=== PATIENT | male | born 1935 | race Caucasian/White ===

== ENCOUNTER 2017-07-21 15:44 | Inpatient (IN) | payer OTHER, MEDICAID ==
[~2017-07-21] VITALS: Ht 165.1 cm; Wt 86.6 kg
[2017-07-21 15:59] VITALS: BP 158/84
--- NOTE | 2017-07-21 16:50 | NUR ---
PATIENT AMBULATED TO BED 3 AT THIS TIME.
--- NOTE | 2017-07-21 17:00 | NUR ---
PATIENT BIB DAUGHTER WITH C/O DIZZINESS, WEAKNESS X 10 DAYS WITH HEAD ACHES RADIATING TO THE NECK LOSSING WEIGHT 8 LBS; DENIES N/V/D;HX OF HTN, BPH, COLON CA, RX OF VIT B 1000MG.DENIES N/V/D; SKIN IS PINK/WARM/DRY; AAOX4 WITH EVEN AND STEADY GAIT; PT DENIES ANY FEVER, CP, SOB, OR COUGH AT THIS TIME; PATIENT STATES PAIN OF 5/10 AT THIS TIME;PATIENT POSITIONED FOR COMFORT; HOB ELEVATED; BEDRAILS UP X2; BED DOWN. ALL MONITORS IN NPLACED;ER MD MADE AWARE OF PT STATUS.
[2017-07-21 17:16] LABS: BASOPHILS # (AUTO) 0.1 K/uL (0.00-0.22); BASOPHILS % (AUTO) 1.8 % (0.0-2.0); EOSINOPHILS # (AUTO) 0.1 K/uL (0-0.4); EOSINOPHILS % (AUTO) 1.3 % (0.0-4.0); HEMATOCRIT 36.8 % (36-52); HEMOGLOBIN 12.3 g/dL (12.0-18.0); MEAN CORPUSCULAR HEMOGLOBIN 30 pg (27-31); MEAN CORPUSCULAR HGB CONC 33 g/dL (33-37); MEAN CORPUSCULAR VOLUME 90 fL (80-94); MONOCYTES # (AUTO) 0.5 K/uL (0.8-1.0); MONOCYTES % (AUTO) 7.2 % (1.7-9.3); NEUTROPHILS # (AUTO) 5.1 K/uL (1.8-7.7); NEUTROPHILS % (AUTO) 74.7 % (42.2-75.2); PLATELET COUNT (AUTO) 211 K/uL (140-450); RED BLOOD CELL COUNT(AUTO) 4.09 MIL/uL (4.20-6.10); RED CELL DISTRIBUTION WIDTH 12.2 % (11.6-13.7); WHITE BLOOD COUNT (AUTO) 6.8 K/uL (4.8-10.8)
[2017-07-21 17:41] LABS: ANION GAP 9.9 (8-16); CARBON DIOXIDE 31.1 mmol/L (21-32); CHLORIDE 103 mmol/L (98-107); CREATININE 0.9 mg/dL (0.7-1.3); GLUCOSE 117 mg/dL (74-106); SODIUM SERUM 140 mmol/L (136-145); UREA NITROGEN, BLOOD 22 mg/dL (7-18)
[2017-07-21 17:51] LABS: PROTHROMBIN TIME 10.9 secs (10.8-13.4)
[2017-07-21 17:56] LABS: ALBUMIN 3.8 g/dL (3.4-5.0); ASPARTATE AMINOTRANSFERASE 14 U/L (15-37); TOTAL BILIRUBIN 0.4 mg/dL (0.0-1.0)
[2017-07-21 18:16] LABS: APPEARANCE,URINE CLEAR (CLEAR); BILIRUBIN,URINE NEGATIVE (NEGATIVE); BLOOD, URINE TRACE-I (NEGATIVE); COLOR,URINE YELLOW (YELLOW); LEUKOCYTE ESTERASE ,URINE NEGATIVE (NEGATIVE); NITRITE, URINE NEGATIVE (NEGATIVE); UGLUCOSE NEGATIVE (NEGATIVE)
[2017-07-21] MEDS ORDERED: ACETAMINOPHEN 325 MG TAB PO PRN (18:30)
[2017-07-21] MEDS ORDERED: ONDANSETRON 4 MG/2 ML VIAL IM/IVP PRN (18:30)
[2017-07-21] MEDS ORDERED: CLOPIDOGREL 75 MG TAB PO ONE (18:30)
[2017-07-21] MEDS ORDERED: HYDROcodone/APAP 7.5/325 MG 1 TAB PO PRN (18:30)
[2017-07-21] MEDS ORDERED: DOCUSATE SODIUM 100 MG GELCAP PO PRN (18:30)
[2017-07-21] MEDS ORDERED: MORPHINE SULFATE 2 MG/ML SYR IVP PRN ×2 (18:30→19:00)
[2017-07-21] MEDS ORDERED: ASPIRIN 81 MG TAB.CHEW PO ONE (18:30)
[2017-07-21] MEDS ORDERED: NACL 0.9% 1,000 ML IV ONE (18:30)
[2017-07-21 18:32] LABS: RBC,URINE 0-5 (RARE) /HPF (0-5); WBC,URINE NONE SEEN /HPF (0-5)
[2017-07-21] MEDS ORDERED: NITROGLYCERIN 0.4 MG TAB SL PRN (19:00)
--- NOTE | 2017-07-21 19:00 | NUR ---
PT CAN'T RECALL NAME OF HIGH BLOOD PRESSURE MEDICINE;
--- NOTE | 2017-07-21 19:06 | NUR ---
Patient will be admitted to care of DR MCCARTHY. Admited to TELE. Will go to room 120 B. Belongings list completed. Report to CLARE THERAINER.
[2017-07-21] MEDS ORDERED: VITB12 PO (19:12)
[2017-07-21 19:20] VITALS: BP 138/76
--- NOTE | 2017-07-21 19:20 | NUR ---
ADMITTED A 81M FROM ER. CAME BY KATERINA DUE TO DIZZINESS AND WEAKNESS X 1 WEEK. DX: CHEST PAIN R/O ACS. PT CAME AWAKE,ALERT AND ORIENTED X4. ON TELE MONITOR-SR. DENIES ANY DISCOMFORT AND PAIN AT THIS TIME. SKIN INTACT. RESPIRATION EVEN AND UNLABORED. VITAL SIGNS TAKEN . PLACED COMFORTABLY IN BED. HAS HL ON THE RT WRIST #20. CLEAR AND PATENT. ORIENTED TO HOSPITAL ROUTINES. CALL LIGHT AND URINAL PLACED WITHIN EASY REACH. PLAN OF CARE DISCUSSED AND VERBALIZED UNDERSTANDING. WILL FOLLOW UP ADMIT ORDERS. AND CONTINUE TO MONITOR.
[2017-07-21 20:26] LABS: CHOL/HDL RATIO 3.7 (1-4.5); FREE T4 (FREE THYROXINE) 1.04 ng/dL (0.76-1.46); MAGNESIUM 1.9 mg/dL (1.8-2.4); PHOSPHORUS 3.8 mg/dL (2.5-4.9); THYROID STIMULATING HORMONE 0.65 uIU/mL (0.34-3.74)
[2017-07-21] MEDS: NACL 0.9% 1,000 ML IV SCH (20:45)
--- NOTE | 2017-07-21 20:45 | NUR ---
IVF NS @60 ML /HR STARTED ON THE RT WRIST #20. CLEAR AND PATENT.
[2017-07-21 20:51] LABS: BARBITURATE, URINE NEG. ng/ml (NEG <=200); BENZODIAZEPINE, URINE NEG. ng/mL (NEG <=200); CANNABINOID, URINE NEG. ng/mL (NEG <=50); COCAINE, URINE NEG. ng/mL (NEG <=300); OPIATE, URINE NEG. ng/mL (NEG <=2000); PHENCYCLIDINE SCREEN,URINE NEG. ng/mL (NEG <=25)
[2017-07-21] MEDS ORDERED: ATORVASTATIN 20 MG TAB PO SCH (21:00)
--- NOTE | 2017-07-21 22:00 | NUR ---
MADE ROUNDS, PT SLEEPING WITH NO S/S OF ANY DISCOMFORT NOR PAIN NOTED.
[2017-07-22] VITALS: BP 127/73
--- NOTE | 2017-07-22 | NUR ---
LATEST BP 127/73. WITH NO C/O ANY CHEST PAIN NOR DISCOMFORT NOTED. WILL CONTINUE TO MONITOR.
--- NOTE | 2017-07-22 02:00 | NUR ---
MADE ROUNDS. ASLEEP. WITH NO S/S OF ANY DISTRESS NOR DISCOMFORT NOTED. WILL CONTINUE TO MONITOR.
--- NOTE | 2017-07-22 04:15 | NUR ---
SEQUENTIAL COMPRESSION DEVICE MACHINE TO BOTH LOWER LEGS ON . PT MADE AWARE OF THE BENEFIT FROM THE MACHINE.
[2017-07-22 04:28] VITALS: BP 139/83
--- NOTE | 2017-07-22 04:58 | NUR ---
DR. PERALES, TELEVISION PRODUCTION CLERK , CAME AND SEEN PT. AWARE OF THE TROPONIN RESULTS.
[2017-07-22] MEDS ORDERED: MECLIZINE 25 MG TAB PO PRN (05:25)
--- NOTE | 2017-07-22 07:15 | NUR ---
ENDORSED PT IN STABLE CONDITION TO AM NURSE FOR CONTINUITY OF CARE.
--- NOTE | 2017-07-22 07:20 | NUR ---
RECEIVED REPORT FROM GAGE MAKER NURSE, PT IS RESTING IN BED, A/OX4, AMBULATORY, PT HAS IV ON THE RIGHT WRIST, PATENT, INTACT, FLUSHING WELL, NO S/S OF RESPIRATORY DISTRESS OR DISCOMFORT NOTED, DISCUSSED PLAN OF CARE WITH PT, PT VERBALIZED UNDERSTANDING, SAFETY/FALL PRECAUTIONS ARE IN PLACE, CALL LIGHT IS WITHIN REACH, WILL CONTINUE TO MONITOR.
[2017-07-22 08:00] VITALS: BP 145/86
[2017-07-22 08:25] LABS: T4 (THYROXINE) 6.3 ug/dL (4.5-12.0)
--- NOTE | 2017-07-22 08:55 | NUR ---
PATIENT HAS BEEN SCREENED AND CATEGORIZED MODERATE NUTRITION RISK. PATIENT WILL BE SEEN WITHIN 3-5 DAYS OF ADMISSION. 07/24/17-07/26/[address]
--- NOTE | 2017-07-22 08:58 | NUR ---
DUE MEDICATIONS GIVEN, PT TOLERATED WELL, ALL NEEDS ARE MET AT THIS TIME, CALL LIGHT IS WITHIN REACH.
[2017-07-22] MEDS ORDERED: ASPIRIN 81 MG TAB.CHEW PO SCH (09:00)
[2017-07-22] MEDS ORDERED: METOPROLOL SUCCINATE 50 MG TABER PO SCH (09:00)
[2017-07-22] MEDS ORDERED: LISINOPRIL 20 MG TAB PO SCH (09:00)
--- NOTE | 2017-07-22 09:55 | NUR ---
PER DR. HENNING PT WANTS TO LEAVE THE HOSPITAL AMA.
[2017-07-22] MEDS ORDERED: HYDR-5 PO (10:50)
[2017-07-22] MEDS: NACL 0.9% 1,000 ML IV SCH (11:09)
[2017-07-22 11:14] LABS: ANION GAP 7.6 (8-16); CARBON DIOXIDE 31.3 mmol/L (21-32); CHLORIDE 103 mmol/L (98-107); CREATININE 0.8 mg/dL (0.7-1.3); GLUCOSE 132 mg/dL (74-106); POTASSIUM 3.9 mmol/L (3.5-5.1); SODIUM SERUM 138 mmol/L (136-145); UREA NITROGEN, BLOOD 17 mg/dL (7-18)
[2017-07-22 11:53] LABS: BASOPHILS # (AUTO) 0.1 K/uL (0.00-0.22); BASOPHILS % (AUTO) 1.6 % (0.0-2.0); EOSINOPHILS # (AUTO) 0.1 K/uL (0-0.4); EOSINOPHILS % (AUTO) 0.8 % (0.0-4.0); HEMATOCRIT 35.2 % (36-52); LYMPHOCYTES # (AUTO) 0.6 K/uL (2.0-11.5); LYMPHOCYTES % (AUTO) 8.8 % (20.5-51.1); MEAN CORPUSCULAR HEMOGLOBIN 30 pg (27-31); MEAN CORPUSCULAR HGB CONC 34 g/dL (33-37); MEAN CORPUSCULAR VOLUME 89 fL (80-94); MONOCYTES # (AUTO) 0.4 K/uL (0.8-1.0); MONOCYTES % (AUTO) 6.5 % (1.7-9.3); NEUTROPHILS # (AUTO) 5.4 K/uL (1.8-7.7); NEUTROPHILS % (AUTO) 82.3 % (42.2-75.2); PLATELET COUNT (AUTO) 204 K/uL (140-450); RED BLOOD CELL COUNT(AUTO) 3.97 MIL/uL (4.20-6.10); RED CELL DISTRIBUTION WIDTH 12.1 % (11.6-13.7); WHITE BLOOD COUNT (AUTO) 6.6 K/uL (4.8-10.8)
[2017-07-22 12:00] VITALS: BP 151/89
--- NOTE | 2017-07-22 13:00 | NUR ---
PATIENT'S DAUGHTER HERE TO AFFIRMATIVE ACTION SPECIALIST PT, DR. HENNING IS IN PATIENT'S ROOM DISCUSSING RISKS OF LEAVING AMA. PT STATED HE WAS FEELING FINE AND STILL WANTED TO LEAVE.
[2017-07-22] MEDS ORDERED: ACET-2863 PO (13:01)
--- NOTE | 2017-07-22 13:10 | NUR ---
ID WRIST BAND REMOVED, IV REMOVED, CATHETER TIP INTACT. PT STABLE UPON LEAVING ACCOMPANIED BY DAUGHTER.
== END 2017-07-22 13:10 | disposition left against medical advice (07) | DRG 205 ==
LOC: MED 15:44 → MTU 18:31
PROVIDERS: ADMIT Family Medicine; ATTEND Family Medicine
DX: M94.0 Chondrocostal junction syndrome [Tietze] (principal); N17.0 Acute kidney failure with tubular necrosis; G90.9 Disorder of the autonomic nervous system, unspecified; I10 Essential (primary) hypertension; K21.9 Gastro-esophageal reflux disease without esophagitis; R73.03 Prediabetes; E66.9 Obesity, unspecified; E78.5 Hyperlipidemia, unspecified; Z53.21 Procedure and treatment not carried out due to patient leaving prior to being seen by health care provider; Z85.46 Personal history of malignant neoplasm of prostate; Z85.038 Personal history of other malignant neoplasm of large intestine; Z88.0 Allergy status to penicillin; Z68.31 Body mass index [BMI] 31.0-31.9, adult; Z90.49 Acquired absence of other specified parts of digestive tract; Z90.79 Acquired absence of other genital organ(s); Z82.49 Family history of ischemic heart disease and other diseases of the circulatory system
CPT/HCPCS: 36415; 70450; 71010; 76770; 80048; 80053; 80305; 81001; 82150; 83036; 83605; 83690; 83735; 83880; 84100; 84436; 84439; 84443; 84479; 84484; 85025; 85610; 85730; 87040; 87081; 87086; 93005; 93880; 99285; J7030; Q0092

== ENCOUNTER 2019-03-01 21:32 | Inpatient (IN) | payer OTHER, MEDICAID ==
--- NOTE | 2019-02-11 22:00 | NUR ---
PT. ASSISTED TO GO BEDSIDE COMMODE RT WANTED TO URINATE AND HAVE BM . NO FURTHER COMPLAINTS DONE. CALL LIGHT WITH IN REACH. Addendum: 03/04/19 at 0307 by Charo Pritchard RN ENTRY FOR 03/03/19 3170.
[~2019-03-01] VITALS: Ht 175.3 cm; Wt 81.2 kg
[2019-03-01 21:32] VITALS: BP 130/67
[~2019-03-01 21:32] MED LIST: CYAN100T65 PO; HYDR-5 PO; HYDR-5123 PO
[2019-03-01] MEDS ORDERED: NACL 0.9% 500 ML IV SCH (21:38)
[2019-03-01] MEDS ORDERED: CIPR500T4 PO (21:44)
[2019-03-01] MEDS ORDERED: ASPI-1718 PO (21:44)
[2019-03-01] MEDS ORDERED: HYDR-7 PO (21:44)
[2019-03-01] MEDS ORDERED: METR250T2 PO (21:44)
--- NOTE | 2019-03-01 21:48 | NUR ---
BIBA FROM HOME C/O CHEST PAIN, SUDDEN ONSET, NON PROVOKED. STATES PAIN RADIATES TO ABD. RECENT CHOLESECTOMY, ABD FIRM. SON AT BEDSIDE REPORTS HE WENT INTO AFIB FOR THE FIRST TIME AFTER EULALIA SURGERY AND HAS NOT BEEN ON A BETA MONICA OR BLOOD THINNER FOR THE PAST 5 DAYS. AFIB REPORTED BY EMS ON EKG. TRINID MADE AWARE.
--- NOTE | 2019-03-01 21:51 | NUR ---
DR WOLFF AT BEDSIDE.
[2019-03-01] MEDS ORDERED: DILTIAZEM 25 MG/5 ML VIAL IVP ONE (22:00)
[2019-03-01 22:06] LABS: BASOPHILS % (AUTO) 0.1 % (0.0-2.0); EOSINOPHILS % (AUTO) 0.1 % (0.0-4.0); HEMATOCRIT 33.9 % (36-52); HEMOGLOBIN 11.2 g/dL (12.0-18.0); LYMPHOCYTES % (AUTO) 9.8 % (20.5-51.1); MEAN CORPUSCULAR HEMOGLOBIN 29 pg (27-31); MEAN CORPUSCULAR HGB CONC 33 g/dL (33-37); MEAN CORPUSCULAR VOLUME 88.5 fL (80-94); MONOCYTES # (AUTO) 1.2 K/uL (0.8-1.0); MONOCYTES % (AUTO) 11.6 % (1.7-9.3); NEUTROPHILS # (AUTO) 7.9 K/uL (1.8-7.7); NEUTROPHILS % (AUTO) 78.4 % (42.2-75.2); PLATELET COUNT (AUTO) 326 K/uL (140-450); RED BLOOD CELL COUNT(AUTO) 3.83 MIL/uL (4.20-6.10); RED CELL DISTRIBUTION WIDTH 13.8 % (11.6-13.7)
--- NOTE | 2019-03-01 22:15 | NUR ---
BP 84/[address] WOLFF MADE AWARE.
[2019-03-01 22:17] LABS: PROTHROMBIN TIME 12.3 secs (10.8-13.4)
[2019-03-01 22:20] LABS: ALBUMIN 2.3 g/dL (3.4-5.0); ANION GAP 9.1 (8-16); ASPARTATE AMINOTRANSFERASE 17 U/L (15-37); CARBON DIOXIDE 30.7 mmol/L (21-32); CHLORIDE 98 mmol/L (98-107); CREATININE 1.9 mg/dL (0.7-1.3); GLUCOSE 160 mg/dL (74-106); SODIUM SERUM 135 mmol/L (136-145); TOTAL BILIRUBIN 0.3 mg/dL (0.0-1.0); UREA NITROGEN, BLOOD 42 mg/dL (7-18)
[2019-03-01 22:26] LABS: POTASSIUM 2.8 mmol/L (3.5-5.1)
--- NOTE | 2019-03-01 22:27 | NUR ---
DR WOLFF AT BEDSIDE.
--- NOTE | 2019-03-01 22:28 | NUR ---
PATIENT TAKEN TO CT IN [facility] WITH FLUIDS RUNNING.
[2019-03-01] MEDS ORDERED: POTASSIUM CHLORIDE 10 MEQ TABER PO ONE (22:30)
[2019-03-01] MEDS ORDERED: LEVOFLOXACIN 500 MG/D5W PREMIX 100 ML IV ONE (22:30)
[2019-03-01] MEDS ORDERED: PANTOPRAZOLE 40 MG INJ VIAL IVP ONE (22:30)
[2019-03-01] MEDS ORDERED: ASPIRIN 81 MG TAB.CHEW PO ONE (23:25)
--- NOTE | 2019-03-01 23:35 | NUR ---
PATEINT PROVIDED WITH URINAL. STATES HE DOES NOT NEED TO PEE AT THIS TIME.
[2019-03-02] VITALS (13 sets, daily range): BP systolic 100–131; BP diastolic 55–84
--- NOTE | 2019-03-02 00:10 | NUR ---
Spoke with Suni from [facility]. Updated [facility] of vital signs and status.
[2019-03-02] MEDS ORDERED: NACL 0.9% 500 ML IV ONE (00:20)
[2019-03-02] MEDS ORDERED: DOPamine 400 MG/D5W PREMIX 250 ML IV ONE (00:50)
--- NOTE | 2019-03-02 01:07 | NUR ---
DOPAMINE PREPARED, NOT STARTED. BP 95/56. DR WOLFF MADE AWARE. WILL HOLD DOPAMINE AND CONTINUE TO MONITOR BP
[2019-03-02] MEDS ORDERED: hePARIN / DEXT 5% PREMIX 250 ML IV SCH ×2 (01:10→02:55)
[2019-03-02] MEDS ORDERED: HEPARIN PER PHARMACY MC PRN (01:10)
[2019-03-02] MEDS ORDERED: NACL 0.9% 1,000 ML IV SCH (01:14)
[2019-03-02] MEDS ORDERED: ALBUTEROL 0.083% 2.5 MG/3 ML NEBU INH PRN (01:15)
[2019-03-02] MEDS ORDERED: ACETAMINOPHEN 325 MG TAB PO PRN (01:15)
[2019-03-02] MEDS ORDERED: MORPHINE SULFATE 4 MG/ML SYR IVP PRN (01:15)
[2019-03-02] MEDS ORDERED: HYDROcodone/APAP 5/325 MG 1 TAB TAB PO PRN (01:15)
[2019-03-02] MEDS ORDERED: ONDANSETRON 4 MG/2 ML VIAL IVP PRN (01:15)
[2019-03-02] MEDS ORDERED: NOREPINEPHRINE 4 MG in DEXTROSE 5% 250 ML IV PRN (01:50)
--- NOTE | 2019-03-02 02:00 | NUR ---
CENTRAL LINE PLACED IN RIGHT SUBCLAVIAN BY DR. WOLFF. CONSENT SIGNED. XRAY OBTAINED TO VERIFY PLACEMENT. PER DR WOLFF LINE GOOD FOR USE.
--- NOTE | 2019-03-02 02:10 | NUR ---
RECEIVED PT FROM ER NURSE NO ACUTE DISTRESS NOTED. WILL CONTINUE TO OBSERVE
--- NOTE | 2019-03-02 02:12 | NUR ---
PATIENT TRANSPORTED BY KATERINA ON MONITOR TO ICU BED 7. TO BE CARED FOR BY DR FRANCO. REPORT GIVEN TO RN, BILLIE. PATIENT STABLE AT TIME OF TRANSFER OF CARE.
--- NOTE | 2019-03-02 02:15 | NUR ---
PT AAOX4, FOLLOWING COMMANDS. PT ABLE TO MOVE ALL EXTREMITIES, GENERALIZED WEAKNESS NOTED. PT ON ROOM AIR, DIMINISHED BREATH SOUNDS. AFIB ON MONITOR IRREGULAR PULSE NOTED, 130S HR, +2-3 BILATERAL LOWER EXTREM EDEMA NOTED. ABD DISTENDED, ROUND, BOWEL SOUNDS PRESENT. PT VOIDING IN URINAL WITH ASSISTANCE. OLD SCAR TO MID ABDOMEN FROM PREVIOUS SURGERY, ERYTHEMA TO BILATERAL LOWER EXTREMITIIES NOTED. TRIPLE LUMEN CENTRAL LINE TO R SUBCLAVIAN NOTED. BED LOCKED IN LOWEST POSITION. WILL CONTINUE TO OBSERVE
[2019-03-02] MEDS ORDERED: AMIODARONE 150 MG/3 ML VIAL IV ONE ×2 (02:40→02:41)
[2019-03-02] MEDS ORDERED: metroNIDAZOLE 500 MG/NS PREMIX 100 ML IV SCH (03:00)
[2019-03-02] MEDS: AMIODARONE 450 MG in DEXTROSE 5% 250 ML IV SCH ×2 (03:02→09:45)
--- NOTE | 2019-03-02 05:14 | NUR ---
PT IN BED EYES CLOSED. AROUSABLE. DENIES PAIN @ THIS TIME. NO ACUTE DISTRESS NOTED. WILL CONTINUE TO OBSERVE
[2019-03-02 05:55] LABS: BASOPHILS % (AUTO) 0.2 % (0.0-2.0); EOSINOPHILS % (AUTO) 0.2 % (0.0-4.0); HEMATOCRIT 28.9 % (36-52); HEMOGLOBIN 9.8 g/dL (12.0-18.0); LYMPHOCYTES # (AUTO) 0.9 K/uL (2.0-11.5); LYMPHOCYTES % (AUTO) 9.3 % (20.5-51.1); MEAN CORPUSCULAR HEMOGLOBIN 30 pg (27-31); MEAN CORPUSCULAR HGB CONC 34 g/dL (33-37); MEAN CORPUSCULAR VOLUME 88.3 fL (80-94); MONOCYTES % (AUTO) 10.2 % (1.7-9.3); NEUTROPHILS % (AUTO) 80.1 % (42.2-75.2); PLATELET COUNT (AUTO) 257 K/uL (140-450); RED BLOOD CELL COUNT(AUTO) 3.27 MIL/uL (4.20-6.10); RED CELL DISTRIBUTION WIDTH 13.8 % (11.6-13.7); WHITE BLOOD COUNT (AUTO) 9.9 K/uL (4.8-10.8)
[2019-03-02 06:27] LABS: ANION GAP 6.9 (8-16); CHLORIDE 100 mmol/L (98-107); CREATININE 1.7 mg/dL (0.7-1.3); GLUCOSE 174 mg/dL (74-106); SODIUM SERUM 135 mmol/L (136-145); UREA NITROGEN, BLOOD 39 mg/dL (7-18)
[2019-03-02 06:34] LABS: POTASSIUM 2.9 mmol/L (3.5-5.1)
[2019-03-02] MEDS ORDERED: MAG SULF 2000 MG/WATER PREMIX 50 ML IV SCH (07:30)
[2019-03-02] MEDS: POTASSIUM CHLORIDE 10 MEQ TABER PO SCH ×2 (07:50→12:10)
[2019-03-02] MEDS: PANTOPRAZOLE 40 MG INJ VIAL IVP SCH (08:05)
--- NOTE | 2019-03-02 08:35 | NUR ---
PAGED DR. FRANCO ON HIS EXCHANGE. RECEIVED A CALL BACK FROM DR. MISTY HERNANDEZ. INFORMED OF PATIENT'S PROCEDURE CT GUIDED ABDOMINAL CYST ASPIRATION AND PATIENT ON HEPARIN DRIP, INFORMED OF PATIENT'S TROPONIN TRENDS, LIPASE 751, BP 424 AND PATIENT IS ON IV FLUIDS. PER PHYSICIAN " OK TO HOLD HEPARIN AND RESTART 4 HOURS AFTER PROCEDURE. PUT PATIENT ON CLEAR LIQUID DIET, DISCONTINUE IV FLUIDS"-READBACK AND VERIFIED
--- NOTE | 2019-03-02 08:45 | NUR ---
INFORMED CT STAFF JUMA AND ACCORDING TO HER THAT THEIR DOCTOR WANTS "TO STOP THE HEPARIN 3 HOURS PRIOR TO THE PROCEDURE. SO STOP HEPARIN AT 10 AM"
--- NOTE | 2019-03-02 08:55 | NUR ---
PATIENT HAS BEEN SCREENED AND CATEGORIZED MODERATE NUTRITION RISK. PATIENT WILL BE SEEN WITHIN 3-5 DAYS OF ADMISSION. 03/04/19[address]ICKI [address]
[2019-03-02] MEDS ORDERED: LEVOFLOXACIN 500 MG/D5W PREMIX 100 ML IV SCH (09:00)
[2019-03-02] MEDS: ASPIRIN 81 MG TAB.CHEW PO SCH (09:00)
--- NOTE | 2019-03-02 09:02 | NUR ---
AMIODARONE DRIP DECREASED TO 0.5MG/MIN
--- NOTE | 2019-03-02 10:00 | NUR ---
HEPARIN DRIP TURNED OFF
--- NOTE | 2019-03-02 11:09 | NUR ---
DR. HERNANDEZ AT BEDSIDE
[2019-03-02] MEDS ORDERED: POTASSIUM CHLORIDE 10 MEQ TABER PO PRN (11:25)
[2019-03-02] MEDS ORDERED: MAG SULF 2000 MG/WATER PREMIX 50 ML IV PRN (11:25)
[2019-03-02] MEDS: metroNIDAZOLE 500 MG/NS PREMIX 100 ML IV SCH ×2 (12:10→20:31)
[2019-03-02 12:16] LABS: PROTHROMBIN TIME 12.3 secs (10.8-13.4)
--- NOTE | 2019-03-02 12:30 | NUR ---
FAMILY AT BEDSIDE. PATIENT'S SON WANTS "TO TALK TO A DOCTOR". PAGED DR. HERNANDEZ AND HE CALLED BACK. PER DR. HERNANDEZ " I CANT TALK TO THEM ON THE PHONE RIGHT NOW I WILL CALL BACK IN 4-5 HOURS" INFORMED FAMILY
--- NOTE | 2019-03-02 12:58 | NUR ---
DR. JUDD AT BEDSIDE UPDATING FAMILY OF PATIENT'S CONDITION AND PLANNED CT GUIDED PANCREATIC FLUID ASPIRATION
--- NOTE | 2019-03-02 13:15 | NUR ---
LEFT MESSAGE ON DR. FIGUEROA'S CELL PHONE REMINDING HIM OF CONSULT.
--- NOTE | 2019-03-02 14:00 | NUR ---
PATIENT AT CT DEPARTMENT
--- NOTE | 2019-03-02 14:40 | NUR ---
BACK TO ICU ROOM WITHOUT INCIDENCE. PANCREATIC FLUID SAMPLE SENT TO LABORATORY FOR ORDERED TESTS. URINE SENT FOR ORDERED TESTS
--- NOTE | 2019-03-02 14:45 | NUR ---
SPOKE TO IN PATIENT PHARMACIST AND UPDATED THAT PROCEDURE WAS DONE AND PER DR. HERNANDEZ TO RESTART HEPARIN 4 HOURS AFTER PROCEDURE. PER PHARMACIST "RESTART AT 1000 UNITS/HR AND NO NEED TO GIVE BOLUS"
[2019-03-02 15:03] LABS: APPEARANCE,URINE CLEAR (CLEAR); BILIRUBIN,URINE NEGATIVE (NEGATIVE); BLOOD, URINE NEGATIVE (NEGATIVE); LEUKOCYTE ESTERASE ,URINE NEGATIVE (NEGATIVE); NITRITE, URINE NEGATIVE (NEGATIVE); PH,URINE 5.5 (5.0-9.0); UGLUCOSE NEGATIVE (NEGATIVE)
[2019-03-02 15:04] LABS: COLOR,URINE AMBER (YELLOW)
--- NOTE | 2019-03-02 15:44 | NUR ---
ECHO ONGOING. PAGED DR. HERNANDEZ
--- NOTE | 2019-03-02 16:20 | NUR ---
DR. FIGUEROA HAS NOR RESPONDED TO THE CALL YET. PER MEDICAL STAFF DR. FIGUEROA IS ON VACATION. DR. MISTY HERNANDEZ NOTIFIED. WILL CALL DR. SANDOVAL.
--- NOTE | 2019-03-02 16:45 | NUR ---
PER DR. SANDOVAL'S EXCHANGE. HE IS NOT VASCULAR NEUROLOGIST. DR. BURDEN IS VASCULAR NEUROLOGIST.
--- NOTE | 2019-03-02 16:55 | NUR ---
CALLED DR. SANDOVAL'S EXCHANGE. MADE AWARE THAT DR. BURDEN DOES NOT HAVE PRIVILEGES HERE AT [facility].
--- NOTE | 2019-03-02 17:00 | NUR ---
MESSAGE LEFT AT DR. DAI'S OFFICE TO REMIND HIM OF THE CONSULT.
--- NOTE | 2019-03-02 17:07 | NUR ---
DR. HERNANDEZ CALLED BACK AND INFORMED DR. FIGUEROA IS ON VACATION AND CLARIFIED ABOUT THE AMIODARONE DRIP PATIENT CONVERTED TO SINUS RHYTHM WITH PACs. PER DR. HERNANDEZ "CONSULT DR. SANDOVAL, START AMIODARONE 200MG P.O. TID AND TURN OFF AMIODARONE DRIP 2 HOURS AFTER TAKING THE TABLET" READBACK AND VERIFIED
--- NOTE | 2019-03-02 17:10 | NUR ---
DR. DAI'S RETAIL COMMISSION SALES ASSOCIATE CALLED. STATED THAT DR. DAI IS ON VACATION UNTIL FRIDAY THIS WEEK.
--- NOTE | 2019-03-02 17:12 | NUR ---
DR. MISTY HERNANDEZ NOTIFIED LEEANNA DR. DAI IS ON VACATION. WILL CALL DR. BRICEÑO INSTEAD. PER DR. MISTY HERNANDEZ, IT'S OK FOR DR. SANDOVAL TO SEE PT. TOMORROW.
--- NOTE | 2019-03-02 17:25 | NUR ---
SPOKE TO TAMIR, (DR. SANDOVAL EXCHANGE). NOTIFIED THAT IT IS OK FOR DR. SANDOVAL TO SEE PT. TOMORROW.
--- NOTE | 2019-03-02 18:20 | NUR ---
PATIENT'S DAUGHTER AT BEDSIDE. DAUGHTER SAID "WHERE IS THE DOCTOR? WHY CAN'T HE COME? ARE YOU COVERING UP FOR HIM?" INFORMED HER THAT DR. HERNANDEZ ROUNDED THIS MORNING AND ICU CN GAVE TO HIM BUTCH'S (PATIENT'S SON) NUMBER SO THEY CAN TALK. RN ATTEMPTING TO FEED PATIENT WITH HEAD OF BED UP 45 DEGREES. PATIENT REFUSED TO EAT. PATIENT'S DAUGHTER SAID " HERE LET ME FEED HIM" RN PROVIDED FAMILY AND PATIENT WITH PRIVACY, GIVEN PATIENT CALL OLGUIN WITHIN REACH TO CALL FOR ANY ISSUES
[2019-03-02] MEDS ORDERED: AMIODARONE 200 MG TAB PO SCH (20:00)
[2019-03-02] MEDS ORDERED: AMIODARONE 200 MG TAB ONE (20:40)
--- NOTE | 2019-03-02 20:50 | NUR ---
SPOKE WITH SON OF PT, FÁTIMA, UPDATED REGARDING PT CONDITION. VSS. WILL CONTINUE TO OBSERVE.
[2019-03-02] MEDS: LEVOFLOXACIN 250 MG/D5 PREMIX 50 ML IV SCH (22:50)
[2019-03-03] VITALS (9 sets, daily range): BP systolic 110–129; BP diastolic 55–80
--- NOTE | 2019-03-03 00:20 | NUR ---
PT HAS EYES CLOSED; AROUSABLE, DENIES PAIN @ THIS TIME. TURNED AND REPOSITIONED. NO ACUTE DISTRESS. WILL CONTINUE TO OBSERVE.
[2019-03-03] MEDS: HYDRAGUARD CREAM TP SCH ×2 (01:42→12:43)
[2019-03-03] MEDS: metroNIDAZOLE 500 MG/NS PREMIX 100 ML IV SCH ×3 (04:47→20:36)
--- NOTE | 2019-03-03 04:47 | NUR ---
SCHEDULED FLAGYL GIVEN ACCORDING TO ORDER, EDUCATION PROVIDED.
[2019-03-03 06:29] LABS: BASOPHILS % (AUTO) 0.2 % (0.0-2.0); EOSINOPHILS % (AUTO) 0.2 % (0.0-4.0); HEMATOCRIT 28.7 % (36-52); HEMOGLOBIN 9.7 g/dL (12.0-18.0); LYMPHOCYTES % (AUTO) 11.6 % (20.5-51.1); MEAN CORPUSCULAR HEMOGLOBIN 30 pg (27-31); MEAN CORPUSCULAR HGB CONC 34 g/dL (33-37); MEAN CORPUSCULAR VOLUME 88.6 fL (80-94); MONOCYTES # (AUTO) 0.8 K/uL (0.8-1.0); MONOCYTES % (AUTO) 9.4 % (1.7-9.3); NEUTROPHILS # (AUTO) 6.8 K/uL (1.8-7.7); NEUTROPHILS % (AUTO) 78.6 % (42.2-75.2); PLATELET COUNT (AUTO) 276 K/uL (140-450); RED BLOOD CELL COUNT(AUTO) 3.23 MIL/uL (4.20-6.10); RED CELL DISTRIBUTION WIDTH 13.8 % (11.6-13.7); WHITE BLOOD COUNT (AUTO) 8.7 K/uL (4.8-10.8)
[2019-03-03 06:42] LABS: ALBUMIN 1.8 g/dL (3.4-5.0); ANION GAP 8.7 (8-16); ASPARTATE AMINOTRANSFERASE 15 U/L (15-37); CARBON DIOXIDE 29.5 mmol/L (21-32); CHLORIDE 102 mmol/L (98-107); CREATININE 1.6 mg/dL (0.7-1.3); GLUCOSE 130 mg/dL (74-106); POTASSIUM 4.2 mmol/L (3.5-5.1); SODIUM SERUM 136 mmol/L (136-145); TOTAL BILIRUBIN 0.3 mg/dL (0.0-1.0); UREA NITROGEN, BLOOD 35 mg/dL (7-18)
[2019-03-03 06:45] LABS: MAGNESIUM 1.9 mg/dL (1.8-2.4); PHOSPHORUS 3.2 mg/dL (2.5-4.9)
--- NOTE | 2019-03-03 07:26 | NUR ---
REPORT GIVEN TO DAY SHIFT FOR CONTINUITY OF CARE.
--- NOTE | 2019-03-03 07:27 | NUR ---
RECEIVED REPORT FROM MASS COMMUNICATIONS INSTRUCTOR NURSE AT BEDSIDE, PT IS AAOX4, ABLE TO FOLLOW COMMANDS AND MAKE NEEDS KNOWN. VSS, DENIES PAIN. NO S/S OF DISTRESS, CLEAR LUNG SOUNDS VIKI, ON RA, O2 SAT AT 97%, DENIES CHEST PAIN, SR WITH PAC'S ON PROJECT ENGINEERING MANAGER, SOFT ABDOMEN WITH ACTIVE BOWEL SOUNDS, CONTINENT WITH B&B'S , ABLE TO USE URINAL, SKIN IS WARM AND DRY TO TOUCH, OLD SURGICAL SCAR TO ABDOMEN NOTED, ABLE TO MOVE ALL EXTREMITIES, +2 PITTING EDEMA NOTED TO BLE, GENERALIZED WEAKNESS, CENTRAL LINE TO RIGHT SUBCLAVIAN, TLC, PATENT, RUNNING HEPARIN AT 1000 UNITS/HR AND NS AT 10 ML/HR. HOB ELEVATED TO 30 DEGREES, SCD ON, SAFETY MEASURES IN PLACE, POSITION CHANGED FOR OFF LOAD PRESSURE, CALL LIGHT WITHIN REACH, WILL CONTINUE TO MONITOR.
[2019-03-03] MEDS ORDERED: PROBIOTIC SCREEN 1 EA MISC MC PRN (07:40)
--- NOTE | 2019-03-03 08:13 | NUR ---
DR. SANDOVAL CAME IN TO SEE PT AT BEDSIDE, UPDATED PT'S CONDITION, WILL FOLLOW UP WITH NEW ORDERS.
--- NOTE | 2019-03-03 08:30 | NUR ---
SCHEDULED MEDICATION GIVEN, PT IS ABLE TO SWALLOW PILLS WHOLE, AND TOLERATED WELL.
[2019-03-03] MEDS: AMIODARONE 200 MG TAB PO SCH ×3 (08:37→17:06)
[2019-03-03] MEDS: ASPIRIN 81 MG TAB.CHEW PO SCH (08:37)
[2019-03-03] MEDS: PANTOPRAZOLE 40 MG INJ VIAL IVP SCH (08:37)
[2019-03-03 09:35] LABS: PROTHROMBIN TIME 12.2 secs (10.8-13.4)
--- NOTE | 2019-03-03 10:00 | NUR ---
PT IS RESTING IN BED, NO S/S OF DISTRESS, VSS, DENIES PAIN, POSITION CHANGED FOR OFF LOAD PRESSURE, FAMILY MEMBERS AT BEDSIDE, QUESTIONS ANSWERED.
--- NOTE | 2019-03-03 10:48 | NUR ---
DR. HERNANDEZ CAME IN TO SEE PT AT BEDSIDE, SPOKE TO PT'S SON, AND ANSWERED ALL HIS QUESTION, WILL FOLLOW UP WITH NEW ORDERS.
[2019-03-03] MEDS ORDERED: FUROSEMIDE 20 MG TAB PO SCH (11:56)
--- NOTE | 2019-03-03 12:00 | NUR ---
PT IS RESTING IN BED, NO S/S 0F DISTRESS, VSS, DENIES PAIN, POSITION CHANGED FOR OFF LOAD PRESSURE.
--- NOTE | 2019-03-03 14:00 | NUR ---
TRANSFERRED PT TO ROOM 112B VIA WHEELCHAIR, ALL BELONGS GOES WITH PT, VSS, DENIES PAIN, FAMILY MEMBERS INFORMED TRANSFER.
--- NOTE | 2019-03-03 14:20 | NUR ---
CHECKED ON PT. VS RECORDED BP 94/40, O2 SAT 96 ON RA, HR 94, T 97.5, RR 16, DENIES PAIN AT THIS TIME. PT HAS PICC LINE ON HIS RT UPPER CHEST , TRIPLE LUMEN , HAS LFT AC 20 G IV ACCESS. PT IS ON MECHANICAL SOFT DIET, TAKES THE ENSURE TID. PT IS SL. NO DISTRESS NOTED. CALL LIGHT WITHIN PT REACH. ALL SAFETY MEASURE IN PLACE. INFORMED PT TO USE CALL LIGHT FOR ANY HELP. STATES WILL CALL FRO THE HELP. WILL CONTINUE TO MONITOR PT.
--- NOTE | 2019-03-03 16:15 | NUR ---
CHECKED ON THE PT. VS STABLE AT THIS TIME.PT ASSISTED WITH BEDPAN, STATES FEELING LIKE HAVING BOWEL MOVEMENT. SERVICE CAR OPERATOR ASSISTED WITH BEDPAN. INFORMED HIM TO USE CALLLIGHT WHEN HE IS DONE WITH BM. PLACED CALL LIGHT WITHIN PTS REACH. WILL CONTINUE TO MONITOR PT.
--- NOTE | 2019-03-03 17:08 | NUR ---
ADMINISTERED MEDS TO PT ORDERED. PT TOLERATED WELL. NO SIGN OF DISTRESS NOTED. CALL LIGHT WITHIN PT REACH. WILL CONTINUE TO MONITOR PT.
--- NOTE | 2019-03-03 18:26 | NUR ---
RECEIVED CALL FROM PT'S SON, ASKING TO FEED PT WITH ENSURE. PT DRANK THE ENSURE ALL 1 BOTTLE. ASKED THE SECOND BOTTLE OF ENSURE FROM FNS, PLACED ENSURE AT PT BEDSIDE. INFORMED THE OYSTER UNLOADER TO HELP PT USE THE BEDSIDE COMMODE RATHER THAN USING DAIPER OR BEDPAN. PT LYING COMFORTABLY IN HIS BED. WILL CONTINUE TO MONITOR PT.
--- NOTE | 2019-03-03 18:30 | NUR ---
PT ON THE BEDSIDE COMMODE, HELPED HIM TO SIT ON THE COMMODE. PLACED CALL LIGHT WITHIN PTS REACH. INFORMED HIM TO USE CALL LIGHT WHEN HE IS FINISHED. VERBALIZED UNDERSTANDING. WILL CONTINUE TO MONITOR PT.
--- NOTE | 2019-03-03 19:20 | NUR ---
ENDORSED PT TO PM NURSE AT BEDSIDE. PT IN STABLE CONDITION.
--- NOTE | 2019-03-03 19:25 | NUR ---
RECEIVED FROM AM RN IN BED AWAKE AND ALERT. PT. ABLE TO VERBALIZE SIMPLE NEEDS. CALL LIGHT WITH IN REACH AND CARE PLANS FOR THE NIGHT DISCUSSED WITH HIM. CENTRAL LINE TO RIGHT UPPER CHEST AND LAC IVF #20 . INTACT AND PATENT. ENCOURAGED TO CALL FOR ANY HELP SHE MIGHT NEED OR IF IN PAIN. DX. OF AFIB AND NSTEMI . TELEMETRY MONITORING/CARDIAC. DENIES PAIN AT THIS TIME.
[2019-03-03] MEDS ORDERED: ENOXAPARIN 80 MG/0.8 ML SYR SUBQ SCH (21:00)
[2019-03-03] MEDS ORDERED: LOVENOX 1MG/KG Q12H SUBQ SCH (21:00)
[2019-03-03] MEDS: LEVOFLOXACIN 250 MG/D5 PREMIX 50 ML IV SCH (23:32)
[2019-03-04 00:08] VITALS: BP 117/58
--- NOTE | 2019-03-04 00:13 | NUR ---
SLEEPING WELL AT THIS TIME. ABLE TO ANSWER YES AND NO WITH SIMPLE QUESTIONS.
[2019-03-04] MEDS: HYDRAGUARD CREAM TP SCH ×2 (01:00→13:01)
--- NOTE | 2019-03-04 02:06 | NUR ---
LAB. TECH CALLED AND REPORTED PT. MRSA NARES IS +. WILL MICHAEL FUENTES. INFORM CHARGE NURSE.
--- NOTE | 2019-03-04 02:13 | NUR ---
MD COLEY WIRE CUTTER FOR MD HERNANDEZ MADE AWARE OF MRSA NARES + WITH PT. NO ORDERS GIVEN.
--- NOTE | 2019-03-04 03:02 | NUR ---
PT. AWAKE AT THIS TIME. REQUESTED TO DRINK WATER. TOLERATED WELL. NO COMPLAINTS OF PAIN DONE. PILLOW SUPPORT TO PRESSURE AREAS. ENCOURAGED TO STAY ON TURNED SIDE. "OK" HEEL PROTECTORS ON BILATERALLY.CALL LIGHT WITH IN REACH AND BED ALARM ON. TELEMETRY/CARDIAC MONITORING.
[2019-03-04 04:30] VITALS: BP 117/60
[2019-03-04] MEDS: metroNIDAZOLE 500 MG/NS PREMIX 100 ML IV SCH ×2 (04:45→12:26)
--- NOTE | 2019-03-04 05:58 | NUR ---
BLOOD SPECIMEN TAKEN FROM CENTRAL LINE FOR TESTING. WOKE UP AND ABLE TO ANSWER SIMPLE QUESTIONS. ABLE TO VERBALIZE SIMPLE NEEDS. REFUSED PAIN RELIEVER OFFERED. "NO" REFUSED TO HAVE SNACK OFFERED. ABLE TO DRINK 30 ML OF WATER AT THIS TIME. NO SOB. A/O X 4. CENTRAL LINE PORTS FLUSHED WITH NS. CARDIAC TELEMETRY . NSR /SA. WILL ENDORSE TO NEXT RN FOR CONTINUITY OF CARE.
[2019-03-04 06:50] LABS: BASOPHILS % (AUTO) 0.2 % (0.0-2.0); EOSINOPHILS % (AUTO) 0.4 % (0.0-4.0); HEMOGLOBIN 9.4 g/dL (12.0-18.0); LYMPHOCYTES # (AUTO) 0.8 K/uL (2.0-11.5); LYMPHOCYTES % (AUTO) 8.3 % (20.5-51.1); MEAN CORPUSCULAR HEMOGLOBIN 30 pg (27-31); MEAN CORPUSCULAR HGB CONC 34 g/dL (33-37); MEAN CORPUSCULAR VOLUME 88.4 fL (80-94); MONOCYTES # (AUTO) 0.7 K/uL (0.8-1.0); MONOCYTES % (AUTO) 7.9 % (1.7-9.3); NEUTROPHILS # (AUTO) 7.9 K/uL (1.8-7.7); NEUTROPHILS % (AUTO) 83.2 % (42.2-75.2); PLATELET COUNT (AUTO) 247 K/uL (140-450); RED BLOOD CELL COUNT(AUTO) 3.17 MIL/uL (4.20-6.10); RED CELL DISTRIBUTION WIDTH 13.8 % (11.6-13.7); WHITE BLOOD COUNT (AUTO) 9.5 K/uL (4.8-10.8)
[2019-03-04 06:54] LABS: ALBUMIN 1.7 g/dL (3.4-5.0); ANION GAP 8.9 (8-16); ASPARTATE AMINOTRANSFERASE 16 U/L (15-37); CARBON DIOXIDE 29.8 mmol/L (21-32); CHLORIDE 102 mmol/L (98-107); CREATININE 1.6 mg/dL (0.7-1.3); GLUCOSE 133 mg/dL (74-106); POTASSIUM 3.7 mmol/L (3.5-5.1); SODIUM SERUM 137 mmol/L (136-145); TOTAL BILIRUBIN 0.2 mg/dL (0.0-1.0); UREA NITROGEN, BLOOD 34 mg/dL (7-18)
[2019-03-04 06:56] LABS: MAGNESIUM 1.8 mg/dL (1.8-2.4); PHOSPHORUS 2.8 mg/dL (2.5-4.9)
--- NOTE | 2019-03-04 07:30 | NUR ---
PATIENT WAS AWAKE, ALERT, ORIENTED TO PERSON, AND PLACE. RESPIRATION EVEN, UNLABOR ON ROOM AIR. SKIN DRY AND WARM. CENTRAL LINE PATENT AND INTACT. DENIED PAIN, N/V, SOB AT THIS TIME. PLAN OF CARE WAS DISCUSSED WITH PATIENT. BED AT LOW POSITION, SIDE RAILS UP. CALL LIGHT WITHIN REACH.
[2019-03-04 08:00] VITALS: BP 102/43
[2019-03-04 08:01] LABS: PROTHROMBIN TIME 11.5 secs (10.8-13.4)
[2019-03-04] MEDS: PANTOPRAZOLE 40 MG INJ VIAL IVP SCH (08:44)
[2019-03-04] MEDS: ASPIRIN 81 MG TAB.CHEW PO SCH (08:45)
[2019-03-04] MEDS: AMIODARONE 200 MG TAB PO SCH ×2 (08:46→12:27)
[2019-03-04] MEDS ORDERED: FUROSEMIDE 20 MG TAB PO SCH (09:00)
[2019-03-04] MEDS ORDERED: APIXABAN 2.5 MG TAB PO SCH (09:00)
[2019-03-04] MEDS ORDERED: CHLORHEXADINE GLUC 2% CLOTH TP SCH (09:00)
[2019-03-04] MEDS ORDERED: CLINICAL MONITORING MC SCH (09:00)
[2019-03-04] MEDS ORDERED: MUPIROCIN CA NASAL 2% 1GM TUBE NS SCH (09:00)
--- NOTE | 2019-03-04 09:15 | NUR ---
PATIENT WAS ASSISTED TO GO TO COMMODE, WEAK GAIT. MEDS WERE ADMINISTERED PER ORDER. NO DISTRESS NOTED AT THIS TIME
--- NOTE | 2019-03-04 11:15 | NUR ---
PATIENT WAS AMBULATING AROUND THE HALLWAY WITH WALKER, ACCOMPANIED BY SON, STEADY GAIT. NO DISTRESS NOTED
[2019-03-04] MEDS ORDERED: APIX2.5 PO (11:20)
[2019-03-04] MEDS ORDERED: FURO20TA8 PO (11:20)
[2019-03-04] MEDS ORDERED: AMIO200T10 PO (11:20)
--- NOTE | 2019-03-04 11:45 | NUR ---
PATIENT WAS AWAKE, ALERT, SITING IN THE CHAIR COMFORTABLY. RESPIRATION EVEN, UNLABOR ON ROOM AIR. DENIED PAIN AT THIS TIME. FAMILY AT BEDSIDE. CALL LIGHT WITHIN REACH
[2019-03-04 12:00] VITALS: BP 127/56
--- NOTE | 2019-03-04 12:30 | NUR ---
DISCHARGE INSTRUCTION AND PRESCRIPTIONS WERE GIVEN AND EXPLAINED TO PATIENT'S SON. SON VERBALIZED UNDERSTANDING. IV WAS REMOVED FROM LEFT AC, CATHETER INTACT, NO ACTIVE BLEEDING SEEN.
--- NOTE | 2019-03-04 14:30 | NUR ---
CENTRAL LINE D/C. USED ASEPTIC TECHNIQUE. CATHETER INTACT. APPLIED PRESSURE. NO ACTIVE BLEEDING SEEN. PATIENT TOLERATED PROCEDURE WELL.
--- NOTE | 2019-03-04 14:42 | NUR ---
DC PLANNING: CM FAXED DC ORDER WITH PT KIM NOTES TO [facility] @ [facility] CM SPOKE WITH FLEX (CM @ [facility]) @ REGARDING PATIENT DISCHARGING HOME WITH HOME HEALTH NEEDS FOR PHYSICAL THERAPY. PER FLEX, THEY ARE CURRENTLY PROCESSING THE HOME HEALTH AND WILL CALL BACK ONCE A HOME HEALTH COMPANY IS SETUP. CM TO FOLLOW UP NEEDED.
--- NOTE | 2019-03-04 15:46 | NUR ---
FOLLOW UP APPOINTMENTS: 1. SURGEON: DR. BRICEÑO ADDRESS: [id number] [place], [place] PHONE: APPOINTMENT: 03/11/2019 @ 3:45PM 2. WELT STITCH CLEANER: JESSICA KOWALSKI ADDRESS: [address] [place], [place] PHONE: APPOINTMENT: 03/12/2019 @10:30AM 3. SHELL MOLDING ROLLER BLAST OPERATOR: DR. CRAWFORD ADDRESS: [address] [place] [address] [place] [address] PHONE: APPOINTMENT: 03/24/2019 @ 1:45PM HOME HEALTH SET UP WITH: [facility] PER KRISTIE HU @ [facility] WILL BE CONTACTING PATIENT/FAMILY FOR APPOINTMENT TOMORROW. KRISTIE PROVIDED PATIENT'S SON ( MODESTA) ALL THE ABOVE INFORMATION AND INSTRUCTED THAT IT IS VERY IMPORTANT TO FOLLOW UP WITH THE MD APPOINTMENTS.
--- NOTE | 2019-03-04 16:10 | NUR ---
ALL BELONGINGS WERE TAKEN WITH FAMILY. BROTH MIXER AND ID BAND WERE REMOVED. PATIENT WAS ESCORTED OUT IN WHEELCHAIR BY STAFF. PATIENT IS STABLE AT THIS TIME
== END 2019-03-04 16:10 | disposition home health service (06) | DRG 438 ==
LOC: MED 21:32 → MIC 03-02 01:14 → MTU 03-03 14:00
PROVIDERS: ADMIT Internal Medicine Pulmonary Disease; ATTEND Internal Medicine Pulmonary Disease
PROC: 02HV33Z Insertion of Infusion Device into Superior Vena Cava, Percutaneous Approach (ICD-10-PCS; principal; 2019-03-01)
PROC: 0F9G3ZZ Drainage of Pancreas, Percutaneous Approach (ICD-10-PCS; 2019-03-02)
DX: K86.3 Pseudocyst of pancreas (principal); I21.A1 Myocardial infarction type 2; N17.0 Acute kidney failure with tubular necrosis; I13.0 Hypertensive heart and chronic kidney disease with heart failure and stage 1 through stage 4 chronic kidney disease, or unspecified chronic kidney disease; I50.30 Unspecified diastolic (congestive) heart failure; I48.91 Unspecified atrial fibrillation; E87.6 Hypokalemia; N18.9 Chronic kidney disease, unspecified; E83.42 Hypomagnesemia; Z68.27 Body mass index [BMI] 27.0-27.9, adult; Z85.038 Personal history of other malignant neoplasm of large intestine; Z85.46 Personal history of malignant neoplasm of prostate; Z88.0 Allergy status to penicillin; Z90.49 Acquired absence of other specified parts of digestive tract; Z79.82 Long term (current) use of aspirin; Z79.899 Other long term (current) drug therapy
CPT/HCPCS: 36415; 71045; 76360; 80048; 80053; 81003; 83605; 83690; 83735; 83880; 84100; 84132; 84484; 85025; 85610; 85730; 87040; 87070; 87075; 87081; 87205; 88305; 93005; 96361; 96365; 96372; 99291; C9113; J0282; J1265; J1644; J1956; J2270; J2405; J3475; J3490; J7030; J7060; Q0092

== ENCOUNTER 2022-10-21 04:30 | Inpatient (IN) | payer OTHER ==
[~2022-10-21] VITALS: Ht 167.6 cm; Wt 68.0 kg
[2022-10-21 04:30] VITALS: BP 163/91
[~2022-10-21 04:30] MED LIST changes: +AMIO200T10 PO; +APIX2.5 PO; +ASPI-1822 PO; -CYAN100T65 PO; +FURO20TA8 PO; -HYDR-5 PO; -HYDR-5123 PO; +LISI1TAB45 PO
--- NOTE | 2022-10-21 04:30 | NUR ---
PT JUAN DIEGO ALS. TAKEN TO ER BED 10. DR. MAN AND RT AT BEDSIDE
--- NOTE | 2022-10-21 04:32 | NUR ---
COLLIN ALVAREZ (DAUGHTER) [phone]
[2022-10-21] MEDS ORDERED: ALBUTEROL 0.083% 2.5 MG/3 ML NEBU INH ONE (04:40)
[2022-10-21] MEDS ORDERED: LEVOFLOXACIN 750 MG/D5W PREMIX 150 ML IV ONE (04:40)
--- NOTE | 2022-10-21 05:00 | NUR ---
RECTAL TEMP 101.3. BAKARI MAN AWARE.
--- NOTE | 2022-10-21 05:17 | NUR ---
Dr. Ontiveros examining patient.
[2022-10-21 05:29] LABS: BASOPHILS % (AUTO) 0.3 % (0.0-2.0); HEMATOCRIT 33.7 % (36-52); HEMOGLOBIN 11.1 g/dL (12.0-18.0); LYMPHOCYTES # (AUTO) 0.4 K/uL (2.0-11.5); LYMPHOCYTES % (AUTO) 3.9 % (20.5-51.1); MEAN CORPUSCULAR HEMOGLOBIN 31 pg (27-31); MEAN CORPUSCULAR HGB CONC 33 g/dL (33-37); MONOCYTES # (AUTO) 0.7 K/uL (0.8-1.0); MONOCYTES % (AUTO) 6.9 % (1.7-9.3); NEUTROPHILS # (AUTO) 8.7 K/uL (1.8-7.7); NEUTROPHILS % (AUTO) 88.9 % (42.2-75.2); PLATELET COUNT (AUTO) 140 K/uL (140-450); RED BLOOD CELL COUNT(AUTO) 3.59 MIL/uL (4.20-6.10); RED CELL DISTRIBUTION WIDTH 14.6 % (11.6-13.7); WHITE BLOOD COUNT (AUTO) 9.7 K/uL (4.8-10.8)
[2022-10-21] MEDS ORDERED: DEXAMETHASONE 4 MG/ML VIAL IVP ONE (05:40)
[2022-10-21] MEDS ORDERED: FUROSEMIDE 20 MG/2 ML VIAL IVP ONE (05:40)
[2022-10-21 05:45] LABS: ALBUMIN 3.7 g/dL (3.4-5.0); ANION GAP 13.1 (8-16); ASPARTATE AMINOTRANSFERASE 24 U/L (15-37); CARBON DIOXIDE 27.5 mmol/L (21-32); CHLORIDE 101 mmol/L (98-107); GLUCOSE 99 mg/dL (74-106); POTASSIUM 4.6 mmol/L (3.5-5.1); SODIUM SERUM 137 mmol/L (136-145); TOTAL BILIRUBIN 0.4 mg/dL (0.0-1.0); UREA NITROGEN, BLOOD 34 mg/dL (7-18)
--- NOTE | 2022-10-21 05:49 | NUR ---
PER BAKARI MAN, PLACE VALENCIA CATHETER
--- NOTE | 2022-10-21 05:50 | NUR ---
# 16 FR Handy catheter with 10 ml utilizing sterile technique. Immediate return of 200 ml YELLOW urine noted. Bedside drainage bag placed below level of bladder. Urine sample collected and sent to lab. Pt tolerated procedure WELL.
[2022-10-21] MEDS ORDERED: ACETAMINOPHEN 650 MG SUPP RC ONE (05:55)
--- NOTE | 2022-10-21 05:58 | NUR ---
PER , HE SPOKE TO DAUGHTER, SON AND , THEY DECIDED TO MAKE PT DNR/DNI. NO CHEST COMPRESSIONS AND NO INTUBATION.
[2022-10-21 06:04] LABS: APPEARANCE,URINE CLEAR (CLEAR); BILIRUBIN,URINE NEGATIVE (NEGATIVE); BLOOD, URINE 1+ (NEGATIVE); COLOR,URINE YELLOW (YELLOW); LEUKOCYTE ESTERASE ,URINE NEGATIVE (NEGATIVE); NITRITE, URINE NEGATIVE (NEGATIVE); PH,URINE 5.5 (5.0-9.0); UGLUCOSE NEGATIVE (NEGATIVE)
--- NOTE | 2022-10-21 06:16 | NUR ---
MADE AWARE ABOUT FAMILIES DECISION FOR PT TO BE DNR/DNI. DR. LANDEROS WOULD LIKE TO CARRY OUT ORDER AND HAVE PT GO TO [facility].
--- NOTE | 2022-10-21 06:48 | NUR ---
[facility] [phone]
[2022-10-21] MEDS ORDERED: METO25TE2 PO (06:56)
[2022-10-21] MEDS ORDERED: GABA100C PO (06:56)
[2022-10-21 07:03] LABS: WBC,URINE 0-5 /HPF (0-5)
--- NOTE | 2022-10-21 07:10 | NUR ---
PT RECEIVED, CARE ASSUMED. PT LAYING IN BED ASLEEP. PT IS HARD TO AROUSE. PT DOES REACT TO PAINFUL STIMULI. BIPAP ON. WILL CONTINUE TO MONITOR
--- NOTE | 2022-10-21 07:35 | NUR ---
Report given to Jose SPARKS for transfer of care
[2022-10-21 07:56] LABS: PROTHROMBIN TIME 13.2 secs (10.8-13.4)
[2022-10-21 08:00] VITALS: BP 101/56
[2022-10-21] MEDS ORDERED: ALBUTEROL HFA MDI 90 MCG/ACTUATION 8 GM INH PRN (08:30)
--- NOTE | 2022-10-21 08:35 | NUR ---
RECEIVED REPORT FROM ER NURSE HOOVER FOR CONTINUITY OF CARE. PT STABLE AND RESTING IN BED. PT WAS BROUGHT OVER ON BIPAP, A&QX1, SKIN HAS BRUISING ON UPPER EXTREMITIES AND REDNESS ON LOWER EXTREMITIES. PT IS NPO AT THIS TIME, IV IN THE R HAND 24G THAT IS INTACT AND [place] LOCKED. ALL SAFETY MEASURES MEET AND WILL CONTINUE TO MONITOR.
--- NOTE | 2022-10-21 08:45 | NUR ---
0830: PT TRANSPORTED ON BIPAP FROM ER TO 113. PT STABLE DURING TRANSPORT. BIPAP PLUGGED INTO RED OUTLET.OXYGEN PLUGGED INTO WALL. EXTRA O2 TANK ON STANDBY FULL. WILL CONTINUE TO MONITOR. RN AT BEDSIDE GETTING REPORT.
--- NOTE | 2022-10-21 08:45 | NUR ---
Patient will be admitted to care of MEHDI. Admited to 113. Will go to room. Belongings list completed. Report to .
[2022-10-21] MEDS: ASCORBIC ACID 500 MG TAB PO SCH (09:00)
[2022-10-21] MEDS: ASPIRIN 81 MG TAB.CHEW PO SCH (09:00)
[2022-10-21] MEDS: METOPROLOL SUCCINATE 50 MG TABER PO SCH (09:00)
[2022-10-21] MEDS ORDERED: NON-FORMULARY ITEM (Lisinopril/Hydrochlorothiazide (Lisinopril-Hctz 20-12.5 mg Tab) 1 TAB) PO SCH (09:00)
[2022-10-21] MEDS: APIXABAN 2.5 MG TAB PO SCH ×2 (09:00→20:24)
[2022-10-21] MEDS: ZINC SULF 220 MG CAP PO SCH ×2 (09:00→20:22)
[2022-10-21] MEDS: hydroCHLOROthiazide 25 MG TAB PO SCH (09:00)
[2022-10-21] MEDS ORDERED: FUROSEMIDE 20 MG TAB PO SCH (09:00)
[2022-10-21] MEDS: AMIODARONE 200 MG TAB PO SCH ×3 (09:00→17:15)
[2022-10-21] MEDS: GABAPENTIN 100 MG CAP PO SCH (09:00)
[2022-10-21] MEDS ORDERED: LEVOFLOXACIN 500 MG/D5W PREMIX 100 ML IV SCH (09:00)
[2022-10-21] MEDS: lisinopriL 20 MG TAB PO SCH (09:00)
[2022-10-21] MEDS: VITAMIN D 400 IU TAB PO SCH (09:00)
--- NOTE | 2022-10-21 09:11 | NUR ---
PATIENT HAS BEEN SCREENED AND CATEGORIZED MODERATE NUTRITION RISK. PATIENT WILL BE SEEN WITHIN 3-5 DAYS OF ADMISSION. REVIEWED BY AUGUSTIN HERNANDEZ RD
[2022-10-21] MEDS: FUROSEMIDE 40 MG/4 ML VIAL IVP SCH (09:59)
[2022-10-21] MEDS ORDERED: HEPARIN PER PHARMACY MC PRN (10:00)
[2022-10-21 12:00] VITALS: BP 93/54
--- NOTE | 2022-10-21 13:40 | NUR ---
RECEIVED CALLED FROM NORMAN SUP STATING PT FAMILY WANTED TO TAKE BIPAP OFF DUE TO HIS DAD BEING MORERESPONSIVE. RT ARRIVED TO PT ROOM PT WAS OFF BIPAP WITH SON AT BEDSIDE CARING FOR HIS DAD. RT ASSESSED PT HR 89 SPO2 94% ON RA. RT TOLD SON OF PT WE NEED TO CONSULT WITH PULMO FIRST ABOUT KEEPING PT OFF.; DR BROWER WAS CONTACTED AND OKAYED FOR PT TO BE OFF BIPAP AND PLACE PT ON HFNC 15L 35%. WILL CONTINUE TO MONITOR. SON AWARE OF CHANGES.
--- NOTE | 2022-10-21 13:45 | NUR ---
PT REMOVED FROM BIPAP AND PLACED ON ROOM AIR WITH THE OKAY OF RT AND NEWSWRITER. PTS VITALS STALE AT THIS TIME.
--- NOTE | 2022-10-21 13:50 | NUR ---
@3536 DR. LEONARDA COBOSED PT TO BE 4HOURS ON 4HOURS BIPAP. NASAL MASK WILL BE PLACED AT BEDSIDE FOR BETTER COMFORT IF NEEDED FOR PT . FAMILY AND HOUSE SUP AWARE.
[2022-10-21] MEDS ORDERED: remdesivir COMMUNICATION ORDER 1 EA MISC MC PRN (14:10)
[2022-10-21 16:00] VITALS: BP 93/54
[2022-10-21] MEDS ORDERED: REMDESIVIR. 200 MG in NACL 0.9% 100 ML IV SCH (16:00)
[2022-10-21] MEDS ORDERED: remdesivir CLINICAL MONITORING 1 EA MISC MC PRN (16:00)
--- NOTE | 2022-10-21 16:30 | NUR ---
PT STARTED ON REMDESIVIR TO HELP TREAT COVID. PT STILL STATING ABOVE 90% ON ROOM AIR.
--- NOTE | 2022-10-21 19:30 | NUR ---
RECEIVED REPORT FROM DAY SHIFT NURSE MEHDI FOR CONTINUITY OF CARE. PATIENT IS STABLE.
[2022-10-21 20:00] VITALS: BP 113/50
[2022-10-21 21:17] VITALS: BP 113/50
[2022-10-22 01:33] VITALS: BP 113/50
[2022-10-22 04:00] VITALS: BP 108/57
[2022-10-22] MEDS: LEVOFLOXACIN 250 MG/D5 PREMIX 50 ML IV SCH (05:51)
--- NOTE | 2022-10-22 07:05 | NUR ---
ENDORSED PT TO CLINICIAN ONCOLOGY NURSE BREN FOR CONTINUITY OF CARE. PT STABLE. Addendum: 10/22/22 at 2024 by Adriana Dos Santos RN WRONG TIME
--- NOTE | 2022-10-22 07:10 | NUR ---
RECEIVED PT FROM NIGHT NURSE FOR CONTINUITY OF CARE. PT IS STABLE
[2022-10-22 07:30] LABS: BASOPHILS % (AUTO) 0.2 % (0.0-2.0); HEMATOCRIT 36.6 % (36-52); HEMOGLOBIN 12.4 g/dL (12.0-18.0); LYMPHOCYTES # (AUTO) 0.7 K/uL (2.0-11.5); LYMPHOCYTES % (AUTO) 5.9 % (20.5-51.1); MEAN CORPUSCULAR HEMOGLOBIN 31 pg (27-31); MEAN CORPUSCULAR HGB CONC 34 g/dL (33-37); MONOCYTES # (AUTO) 0.6 K/uL (0.8-1.0); MONOCYTES % (AUTO) 5.1 % (1.7-9.3); NEUTROPHILS % (AUTO) 88.8 % (42.2-75.2); PLATELET COUNT (AUTO) 152 K/uL (140-450); RED BLOOD CELL COUNT(AUTO) 4.06 MIL/uL (4.20-6.10); RED CELL DISTRIBUTION WIDTH 14.8 % (11.6-13.7); WHITE BLOOD COUNT (AUTO) 11.3 K/uL (4.8-10.8)
--- NOTE | 2022-10-22 07:30 | NUR ---
ENDORSED TO DAY SHIFT NURSE MEHDI FOR CONTINUITY OF CARE. PATIENT IS STABLE.
[2022-10-22 07:47] LABS: ALBUMIN 3.1 g/dL (3.4-5.0); ASPARTATE AMINOTRANSFERASE 31 U/L (15-37); CARBON DIOXIDE 27.4 mmol/L (21-32); CHLORIDE 100 mmol/L (98-107); CREATININE 1.9 mg/dL (0.6-1.3); GLUCOSE 89 mg/dL (74-106); LACTATE DEHYDROGENASE 158 U/L (85-227); MAGNESIUM 1.9 mg/dL (1.8-2.4); PHOSPHORUS 4.6 mg/dL (2.5-4.9); POTASSIUM 4.4 mmol/L (3.5-5.1); SODIUM SERUM 139 mmol/L (136-145); TOTAL BILIRUBIN 0.5 mg/dL (0.0-1.0); UREA NITROGEN, BLOOD 42 mg/dL (7-18)
[2022-10-22 08:00] VITALS: BP 108/49
[2022-10-22] MEDS: hydroCHLOROthiazide 25 MG TAB PO SCH (09:00)
[2022-10-22] MEDS: FUROSEMIDE 40 MG/4 ML VIAL IVP SCH (09:00)
[2022-10-22] MEDS: GABAPENTIN 100 MG CAP PO SCH (09:00)
[2022-10-22] MEDS: lisinopriL 20 MG TAB PO SCH (09:00)
[2022-10-22] MEDS: VITAMIN D 400 IU TAB PO SCH (09:00)
[2022-10-22] MEDS: AMIODARONE 200 MG TAB PO SCH ×3 (09:00→21:28)
[2022-10-22] MEDS: APIXABAN 2.5 MG TAB PO SCH ×2 (09:00→21:37)
[2022-10-22] MEDS: ASCORBIC ACID 500 MG TAB PO SCH (09:00)
[2022-10-22] MEDS: ASPIRIN 81 MG TAB.CHEW PO SCH (09:00)
[2022-10-22] MEDS: ZINC SULF 220 MG CAP PO SCH ×2 (09:00→21:28)
[2022-10-22] MEDS: METOPROLOL SUCCINATE 50 MG TABER PO SCH (09:00)
--- NOTE | 2022-10-22 09:10 | NUR ---
PT TAKEN OFF BIPAP AWAKE AND ORIENTED. HR 76 SPO2 96%. NO RESP DISTRESS NOTED. WILL CONTINUE TO MONITOR.
[2022-10-22 16:00] VITALS: BP 112/59
[2022-10-22] MEDS ORDERED: REMDESIVIR. 100 MG in NACL 0.9% 100 ML IV SCH (16:00)
[2022-10-22] MEDS: FUROSEMIDE 20 MG/2 ML VIAL IVP SCH (17:30)
--- NOTE | 2022-10-22 19:05 | NUR ---
ENDORSED PT TO MANAGER LIBRARY NURSE BREN FOR CONTINUITY OF CARE. PT STABLE.
--- NOTE | 2022-10-22 19:25 | NUR ---
RECEIVED PT FROM MORNING SHIFT NURSE. PT IS AOX2, AND BEDBOUND. PT IS ON ROOM AIR AND ON CARDIAC DIET. PT HAS IV ON RIGHT HAND GAUGE 24 SALINE LOCK. PT HAS VALENCIA CATHETER AND PT HAS A BILATERAL LOWER EXTREMITY EDEMA AND BRUISING ON UPPER EXTREMITIES. NO COMPLAIN OF PAIN AT THIS TIME. NO S/S RESPIRATORY DISTRESS NOTED. ALL SAFETY MEASURES IMPLEMENTED. BED IN LOW POSITION, BED WHEELS ON LOCKED AND CALL LIGHT WITHIN REACH.
--- NOTE | 2022-10-22 20:02 | NUR ---
DISCHARGE PLANNING PATIENT IS AN 87 YEAR OLD MALE ADMITTED IN THE [facility]/ED ON 10/21/2022 DUE TO COVID 19, PNA, CHF EXACERBA. SW COULD NOT MEET WITH PATIENT AT BEDSIDE AND INSTEAD CALL PATIENT TO DISCUSS AND GATHER PATIENT'S COLLATERAL INFORMATION. PATIENT WAS AWAKE AN ALERT ABLE TO PROVIDE HIS OWN INF. PATIENT REPORTED THAT HE LIVES HOME WITH HIS FAMILY AND ADULT DAUGTHER COLLIN BROCK IN THEIR HOME IN [facility] [place]. PER PATIENT HE HAS GOOD FAMILY SUPPORT. HE REPORTED THAT HE DO NOT HAVE A.D. AND DECLINED ALL FORMS PROVIDED BY SW. PATIENT REPORTED THAT HIS DAUGTHER COLLIN BROCK ( HAS THE WRONG NUMBER AND PATIENT WILL ASK HER DAUGTHER TO UPDATE INFORMATION TOMORROW)IS HIS EMERGENCY CONTACT AND HIS MEDICAL DECISION MAKER. PATIENT REPORTED THAT HIS PCP IS VISH RENO AND THAT HIS LAST VISIT WITH HIM WAS ABOUT A MONTH AGO. SW EXPLAINED TO PATIENT ABOUT THE IMPORTANCE OF MAKING A FOLLOW UP APPOINTMENT WITH PCP WITHIN 5-7 DAYS AFTER HIS DISCHARGE. PATIENT AGREED AND STATED THAT HIS DAUGHTER WILL BE MAKING HIS APPOINTMENT AT DISCHARGE ANS DECLINED FOR SW TO MAKE HIS APPOINTMENT. PER PATIENT HE HAS NO ISSUES WITH TAKING OR GETTING MEDICATIONS FROM HIS PHARMACY AT [facility] IN [facility] IN [employer] [facility]. IN [place] PER PATIENT HE HAS A CANE, WALKER, WHEELCHAIR, AT HOME HIS DME. PATIENT REPORTED THAT HE WANTS TO GO HOME WHEN HE IS READY AND STABLE FOR DISCHARGE;WITH THE ASSISTANCE OF HIS DAUGTHER WHO WILL PICK HIM UP AT DISCHARGE FORM [facility]. SW/CM WILL FOLLOW UP NEEDED.
--- NOTE | 2022-10-22 21:37 | NUR ---
ALL SCHEDULED AND PRESCRIBED MEDICATION WAS GIVEN TO PT PER MD ORDER. ALL SAFETY MEASURES IMPLEMENTED. BED IN LOW POSITION, BED WHEELS ON LOCKED AND CALL LIGHT WITHIN REACH.
[2022-10-22 22:04] LABS: ALBUMIN 3.1 g/dL (3.4-5.0); TOTAL BILIRUBIN 0.5 mg/dL (0.0-1.0)
[2022-10-22 22:10] LABS: BILIRUBIN,DIRECT 0.1 mg/dL (0.0-0.3)
[2022-10-23] VITALS: BP 108/69
--- NOTE | 2022-10-23 | NUR ---
PT IS WATCHING TV. ASSISTED THE PT TO DRINK WATER AND CHANGED TV CHANNEL. REPOSITION THE PT AND PUT PT'S HEAD UP. PT DENIES PAIN AT THIS TIME. NO S/S OF RESPIRATORY DISTRESS NOTED. ALL SAFETY MEASURES IMPLEMENTED. BED IN LOW POSITION, BED WHEELS ON LOCKED AND CALL LIGHT WITHIN REACH.
--- NOTE | 2022-10-23 02:00 | NUR ---
PT IS SLEEPING. CHEST RISE AND FALL SYMMETRICALLY NOTED. RESPIRATION IS EVEN AND UNLABORED. ALL SAFETY MEASURES IMPLEMENTED. BED IN LOW POSITION, BED WHEELS ON LOCKED AND CALL LIGHT WITHIN REACH.
--- NOTE | 2022-10-23 04:00 | NUR ---
MORNING CARE WAS DONE TO PT. CHANGED GOWNS AND LINENS. VALENCIA CATHETER CARE WAS ALSO DONE. NO COMPLAIN OF PAIN AT THIS TIME. NO S/S OF RESPIRATORY DISTRESS NOTED. ALL SAFETY MEASURES IMPLEMENTED. BED IN LOW POSITION, BED WHEELS ON LOCK AND CALL LIGHT WITHIN REACH.
[2022-10-23] MEDS: LEVOFLOXACIN 250 MG/D5 PREMIX 50 ML IV SCH (05:11)
--- NOTE | 2022-10-23 05:11 | NUR ---
SCHEDULED AND PRESCRIBED MEDICATION WAS GIVEN TO PT PER MD ORDER. NO S/S OF RESPIRATORY DISTRESS NOTED. ALL SAFETY MEASURES IMPLEMENTED. BED IN LOW POSITION, BED WHEELS ON LOCK AND CALL LIGHT WITHIN REACH.
[2022-10-23 07:18] LABS: ALBUMIN 3.2 g/dL (3.4-5.0); TOTAL BILIRUBIN 0.4 mg/dL (0.0-1.0)
[2022-10-23 07:24] LABS: ALBUMIN 3.2 g/dL (3.4-5.0); ANION GAP 15.2 (8-16); ASPARTATE AMINOTRANSFERASE 41 U/L (15-37); CARBON DIOXIDE 28.1 mmol/L (21-32); CHLORIDE 97 mmol/L (98-107); CREATININE 1.9 mg/dL (0.6-1.3); GLUCOSE 123 mg/dL (74-106); LACTATE DEHYDROGENASE 201 U/L (85-227); MAGNESIUM 2.1 mg/dL (1.8-2.4); PHOSPHORUS 3.9 mg/dL (2.5-4.9); POTASSIUM 4.3 mmol/L (3.5-5.1); SODIUM SERUM 136 mmol/L (136-145); TOTAL BILIRUBIN 0.6 mg/dL (0.0-1.0); UREA NITROGEN, BLOOD 56 mg/dL (7-18)
--- NOTE | 2022-10-23 07:31 | NUR ---
PT IS STABLE. ENDORSED PT TO MORNING SHIFT NURSE FOR CONTINUITY OF CARE.
[2022-10-23 07:36] LABS: HEMOGLOBIN 11.7 g/dL (12.0-18.0); MEAN CORPUSCULAR HEMOGLOBIN 31 pg (27-31); MEAN CORPUSCULAR HGB CONC 35 g/dL (33-37); PLATELET COUNT (AUTO) 163 K/uL (140-450); RED BLOOD CELL COUNT(AUTO) 3.77 MIL/uL (4.20-6.10); RED CELL DISTRIBUTION WIDTH 14.8 % (11.6-13.7); WHITE BLOOD COUNT (AUTO) 8.2 K/uL (4.8-10.8)
[2022-10-23 08:00] VITALS: BP 127/64
[2022-10-23 08:58] LABS: BASOPHILS % (MANUAL) 0 % (0-2); EOSINOPHILS % (MANUAL) 0 % (0-4); LYMPHOCYTES % (MANUAL) 3 % (20-46); MONOCYTES % (MANUAL) 3 % (5-12)
[2022-10-23] MEDS: APIXABAN 2.5 MG TAB PO SCH ×2 (09:00→20:59)
[2022-10-23] MEDS: AMIODARONE 200 MG TAB PO SCH ×2 (09:00→20:58)
[2022-10-23 09:01] LABS: BLASTS, MANUAL % 0 % (0-0); METAMYELOCYTES % 1 % (0-0); MYELOCYTES % 0 % (0-0); OTHER CELLS,MANUAL % 0 (0-0); PROMYELOCYTES % 0 % (0-0)
[2022-10-23 09:02] LABS: BUFFY COAT SMEAR PREP N
--- NOTE | 2022-10-23 09:09 | NUR ---
PT. WITH LOW VINITA SCALE AT MODERATE TO HIGH RISK, CONTINUE TO FOLLOW PRESSURE INJURY PREVENTION INTERVENTIONS. -POSITIONING: TURN AND REPOSITION PATIENT Q 2H OR SOONER USE PILLOWS TO KEEP BONY PROMINENCES FROM DIRECT CONTACT WITH SURFACES USE REPOSITIONING WEDGES TO PROVIDE 30-DEGREE ANGLE FOR SIDE LYING POSITIONS OFFLOADING OR FOAM DRESSING TO ALL TUBING TO PREVENT MEDICAL DEVICES RELATED PRESSURE INJURY -RE-EVALUATING AND MANAGING INCONTINENCE MONITOR SKIN CONDITION DURING POSITION CHANGE DO NOT MASSAGE REDNESS, BONY PROMINENCES FREQUENT ISI-CARE AND PROVIDE BARRIER CREAMS PRN IF SOILING MOISTURE CONTROL BY OFFER BED GALARZA/URINAL /ABSORBENT PAD TO WICK AND HOLD MOISTURE KEEP SKIN DRY AND PROTECT FROM FRICTION -MANAGE FRICTION/SHEAR/MOBILITY KEEP HOB AT THE LOWEST LEVEL OF ELEVATION NO MORE THAN 30 DEGREE UNLESS OTHERWISE CONTRAINDICATED USE LIFT SHEET OR TRANSFER DEVICE TO MOVE PATIENT AND PREVENT LATERAL SHEER. PROTECT HEELS, ELBOWS BONY PROMINENCES WITH SKIN BERRIES OR FOAM DRESSING IF EXPOSED TO FRICTION OFFLOAD BILATERAL HEELS BY PLACING PILLOWS UNDER CALVES AT ALL TIMES, UNLESS OTHERWISE CONTRAINDICATED -PRESSURE REDISTRIBUTION SURFACE THERAPY CARMELO ISOFLEX MATTRESS -NUTRITION: PLEASE FOLLOW RD RECOMMENDATIONS AND OFFER NUTRITION SUPPLEMENTS IF ORDERED. PLEASE CONTACT WOUND CARE NURSE FOR ANY QUESTION AND CHANGE OF WOUND CONDITION.
[2022-10-23] MEDS: FUROSEMIDE 20 MG/2 ML VIAL IVP SCH ×2 (11:28→17:32)
[2022-10-23] MEDS: ZINC SULF 220 MG CAP PO SCH ×2 (11:32→20:58)
[2022-10-23] MEDS: GABAPENTIN 100 MG CAP PO SCH (11:32)
[2022-10-23] MEDS: ASCORBIC ACID 500 MG TAB PO SCH (11:33)
[2022-10-23] MEDS: VITAMIN D 400 IU TAB PO SCH (11:33)
[2022-10-23 16:00] VITALS: BP 118/63
--- NOTE | 2022-10-23 19:51 | NUR ---
PT STATED HE WAS PRAYING AND TO COME BACK. SPO2 97% ON RA. WILL COME BACK TO REASSESS
--- NOTE | 2022-10-23 19:55 | NUR ---
ENDORSE PATIENT TO PM SHIFT NURSE IN STABLE CONDITION, DAUGHTER AT BEDSIDE, IV NS INFUSING
--- NOTE | 2022-10-23 19:56 | NUR ---
RECEIVED PT FROM MORNING SHIFT NURSE. PT IS AOX2-3, AND BEDBOUND. PT IS ON ROOM AIR AND ON CARDIAC DIET. PT HAS IV ON RIGHT HAND GAUGE 24 SALINE LOCK AND LEFT AC GAUGE 22 RUNNING WITH NS AT TKO. PT HAS VALENCIA CATHETER AND PT HAS A BILATERAL LOWER EXTREMITY EDEMA AND BRUISING ON UPPER EXTREMITIES. NO COMPLAIN OF PAIN AT THIS TIME. NO S/S RESPIRATORY DISTRESS NOTED. ALL SAFETY MEASURES IMPLEMENTED. BED IN LOW POSITION, BED WHEELS ON LOCKED AND CALL LIGHT WITHIN REACH.
--- NOTE | 2022-10-23 22:00 | NUR ---
CHECKED PT, WATCHING TV. NO COMPLAIN OF PAIN AND NO S/S OF RESPIRATORY DISTRESS NOTED. ALL SAFETY MEASURES IMPLEMENTED. BED IN LOW POSITION, BED WHEELS ON LOCK AND CALL LIGHT WITHIN REACH.
[2022-10-24] VITALS: BP 105/55
--- NOTE | 2022-10-24 | NUR ---
PT IS SLEEPING. CHEST RISE AND FALL SYMMETRICALLY NOTED. RESPIRATION IS EVEN AND UNLABORED. ALL SAFETY MEASURES IMPLEMENTED. BED IN LOW POSITION, BED WHEELS ON LOCK AND CALL LIGHT WITHIN REACH.
--- NOTE | 2022-10-24 02:00 | NUR ---
MORNING CARE WAS DONE TO PT. CHANGED LINENS, GOWN AND CHUCKS. NO COMPLAIN OF PAIN AND NO S/S OF RESPIRATORY DISTRESS NOTED. ALL SAFETY MEASURES IMPLEMENTED. BED IN LOW POSITION, BED WHEELS ON LOCKED AND CALL LIGHT WITHIN REACH.
[2022-10-24] MEDS: LEVOFLOXACIN 250 MG/D5 PREMIX 50 ML IV SCH (05:09)
[2022-10-24 06:59] LABS: BASOPHILS % (AUTO) 0.1 % (0.0-2.0); HEMATOCRIT 32.9 % (36-52); HEMOGLOBIN 11.3 g/dL (12.0-18.0); LYMPHOCYTES # (AUTO) 0.7 K/uL (2.0-11.5); LYMPHOCYTES % (AUTO) 6.6 % (20.5-51.1); MEAN CORPUSCULAR HEMOGLOBIN 31 pg (27-31); MEAN CORPUSCULAR HGB CONC 34 g/dL (33-37); MONOCYTES # (AUTO) 0.7 K/uL (0.8-1.0); MONOCYTES % (AUTO) 6.3 % (1.7-9.3); PLATELET COUNT (AUTO) 176 K/uL (140-450); RED BLOOD CELL COUNT(AUTO) 3.66 MIL/uL (4.20-6.10); RED CELL DISTRIBUTION WIDTH 14.7 % (11.6-13.7); WHITE BLOOD COUNT (AUTO) 10.3 K/uL (4.8-10.8)
--- NOTE | 2022-10-24 07:29 | NUR ---
PT IS STABLE. ENDORSED PT TO MORNING SHIFT NURSE FOR CONTINUITY OF CARE.
[2022-10-24 07:40] LABS: ALBUMIN 3.1 g/dL (3.4-5.0); ANION GAP 10.7 (8-16); ASPARTATE AMINOTRANSFERASE 4 U/L (15-37); CARBON DIOXIDE 30.9 mmol/L (21-32); CHLORIDE 97 mmol/L (98-107); CREATININE 1.8 mg/dL (0.6-1.3); GLUCOSE 105 mg/dL (74-106); LACTATE DEHYDROGENASE 244 U/L (85-227); PHOSPHORUS 2.9 mg/dL (2.5-4.9); POTASSIUM 3.6 mmol/L (3.5-5.1); SODIUM SERUM 135 mmol/L (136-145); TOTAL BILIRUBIN 0.6 mg/dL (0.0-1.0); UREA NITROGEN, BLOOD 58 mg/dL (7-18)
[2022-10-24] MEDS: GABAPENTIN 100 MG CAP PO SCH (09:00)
[2022-10-24] MEDS: FUROSEMIDE 20 MG/2 ML VIAL IVP SCH ×2 (09:00→09:22)
[2022-10-24] MEDS: AMIODARONE 200 MG TAB PO SCH ×2 (09:00→09:22)
[2022-10-24] MEDS: VITAMIN D 400 IU TAB PO SCH (09:22)
[2022-10-24] MEDS: ASCORBIC ACID 500 MG TAB PO SCH (09:33)
[2022-10-24] MEDS: ZINC SULF 220 MG CAP PO SCH (09:34)
== END 2022-10-24 10:00 | disposition left against medical advice (07) | DRG 871 ==
LOC: MED 04:30 → MMU 06:33 → MTU 08:10
PROC: 5A09357 Assistance with Respiratory Ventilation, Less than 24 Consecutive Hours, Continuous Positive Airway Pressure (ICD-10-PCS; principal; 2022-10-21)
PROC: 5A09357 Assistance with Respiratory Ventilation, Less than 24 Consecutive Hours, Continuous Positive Airway Pressure (ICD-10-PCS; 2022-10-21)
PROC: 0T9B70Z Drainage of Bladder with Drainage Device, Via Natural or Artificial Opening (ICD-10-PCS; 2022-10-21)
PROC: XW033E5 Introduction of Remdesivir Anti-infective into Peripheral Vein, Percutaneous Approach, New Technology Group 5 (ICD-10-PCS; 2022-10-22)
DX: A41.9 Sepsis, unspecified organism (principal); J96.01 Acute respiratory failure with hypoxia; U07.1 COVID-19; N17.0 Acute kidney failure with tubular necrosis; I13.0 Hypertensive heart and chronic kidney disease with heart failure and stage 1 through stage 4 chronic kidney disease, or unspecified chronic kidney disease; I25.10 Atherosclerotic heart disease of native coronary artery without angina pectoris; I70.0 Atherosclerosis of aorta; I50.9 Heart failure, unspecified; E86.0 Dehydration; D63.8 Anemia in other chronic diseases classified elsewhere; N18.9 Chronic kidney disease, unspecified; G62.9 Polyneuropathy, unspecified; R31.9 Hematuria, unspecified; I48.91 Unspecified atrial fibrillation; Z88.0 Allergy status to penicillin; Z79.899 Other long term (current) drug therapy; Z85.038 Personal history of other malignant neoplasm of large intestine; Z85.46 Personal history of malignant neoplasm of prostate; Z79.01 Long term (current) use of anticoagulants; Z79.82 Long term (current) use of aspirin; Z82.49 Family history of ischemic heart disease and other diseases of the circulatory system; Z90.49 Acquired absence of other specified parts of digestive tract
CPT/HCPCS: 36415; 71045; 80053; 80076; 81001; 82550; 82803; 83605; 83615; 83735; 83880; 84100; 84484; 85025; 85379; 85610; 85651; 85730; 86140; 87040; 87081; 87086; 87205; 89220; 92526; 93005; 93308; 94640; 94660; 96374; 96375; 97116; 99291; J1100; J1940; J1956; J7613; Q0092